=== PATIENT | female | born 1945 | race Caucasian/White ===

== ENCOUNTER 2017-03-26 08:00 | Outpatient (CLI) | payer MEDICARE, OTHER | END 2017-03-26 08:01 | disposition home or self-care (01) | DX: E03.9 Hypothyroidism, unspecified (principal) ==

== ENCOUNTER 2017-04-02 13:13 | Outpatient (CLI) | payer MEDICARE, OTHER | END 2017-04-02 13:14 | disposition home or self-care (01) | DX: M71.21 Synovial cyst of popliteal space [Baker], right knee (principal) ==

== ENCOUNTER 2017-04-08 10:23 | Outpatient (CLI) | payer MEDICARE, OTHER | END 2017-04-08 10:24 | disposition home or self-care (01) | DX: M17.0 Bilateral primary osteoarthritis of knee (principal) ==

== ENCOUNTER 2017-12-09 13:42 | Emergency (ER) | payer MEDICARE, OTHER ==
[2017-12-09 14:24] VITALS: BP 142/60
--- NOTE | 2017-12-09 14:26 | ED Physician Documentation ---
PD HPI CHEST PAIN - Stated complaint Stated Complaint: CHEST PRESSURE - History obtained from History obtained from: Family - History of Present Illness Timing - onset: Yesterday (Productive cough since yesterday with shortness of breath and chest pressure she thinks from the coughing with low-grade fevers at home and she feels like her skin is hypersensitive. No pedal edema or diffuse body aches. No recent travel, but she Did cancel a trip to [place] today because of this illness.) Review of Systems Constitutional: reports: Fever, Chills, Myalgias, Fatigue Ears: denies: Ear pain Nose: reports: Rhinorrhea / runny nose Throat: denies: Sore throat Cardiac: reports: Chest pain / pressure. 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 - Present Medications Home Medications: Ambulatory Orders Medication Instructions Recorded Confirmed Ezetimibe [Zetia] 10 mg PO DAILY 09/28/15 12/09/17 Hydroxychloroquine [Plaquenil] 200 mg PO DAILY 09/28/15 12/09/17 Levothyroxine Sodium [Synthroid] 125 mcg PO DAILY 09/28/15 12/09/17 guaiFENesin [Mucinex] 600 mg PO DAILY 09/29/15 12/09/17 Oseltamivir [Tamiflu] 75 mg PO BID #10 capsule 12/09/17 guaiFENesin/CODEINE [Robitussin AC] 5 - 10 ml PO Q6H PRN #120 ml 12/09/17 predniSONE [Deltasone] 20 mg PO [id number] #21 tab 12/09/17 - Allergies Allergies/Adverse Reactions: Allergies Allergy/AdvReac Type Severity Reaction Status Date / Time MSG Allergy Edema Uncoded 12/09/17 14:25 tannins Allergy Headache Uncoded 12/09/17 14:25 PD ED PE NORMAL - Vitals Vital signs reviewed: Yes - General General: Alert and oriented X 3, No acute distress - HEENT HEENT: PERRL, EOMI, Ears normal - Neck Neck: Supple, no meningeal sign, No bony TTP - Cardiac Cardiac: RRR, No murmur - Respiratory Respiratory: No respiratory distress, Clear bilaterally - Abdomen Abdomen: Normal bowel sounds, Soft, Non tender - Derm Derm: Normal color, Warm and dry - Extremities Extremities: No edema, No calf tenderness / cord - Neuro Neuro: Alert and oriented X 3, Normal speech Results - Vitals Vitals: Vital Signs - 24 hr 12/09/17 14:22 Temperature 38.6 C H Heart Rate 87 Respiratory 20 Rate Blood Pressure 142/60 H O2 Saturation 97 Oxygen O2 Source Room air - EKG (time done) 1355 Rate: Rate (enter#) (82) Rhythm: NSR Tyro: Normal Intervals: Normal HI QRS: Normal Ischemia: Normal ST segments Computer interpretation: Agree with computer - Labs Labs: Laboratory Tests 12/09/17 12/09/17 12/09/17 14:35 14:45 14:45 WBC 3.3 L RBC 4.29 Hgb 13.0 Hct 39.0 MCV 90.8 MCH 30.2 MCHC 33.3 RDW 13.1 Plt Count 192 MPV 7.5 L Neut # 1.7 Lymph # 0.7 L Garza # 0.7 Eos # 0.0 Baso # 0.1 Absolute Nucleated RBC 0.00 Nucleated RBC % 0.1 Sodium 138 Potassium 3.5 Chloride 102 Carbon Dioxide 25 Anion Gap 11.0 BUN 11 Creatinine 0.8 Estimated GFR (MDRD) 71 L Glucose 91 Calcium 8.7 Total Bilirubin 0.2 AST 23 ALT 18 Alkaline Phosphatase 49 Troponin I Total Protein 6.7 Albumin 3.9 Globulin 2.8 Albumin/Globulin Ratio 1.4 Lipase 24 Influenza A (Rapid) Negative Influenza B (Rapid) POSITIVE H Influenza Types A,B Ag + H 12/09/17 14:45 WBC RBC Hgb Hct MCV MCH MCHC RDW Plt Count MPV Neut # Lymph # Garza # Eos # Baso # Absolute Nucleated RBC Nucleated RBC % Sodium Potassium Chloride Carbon Dioxide Anion Gap BUN Creatinine Estimated GFR (MDRD) Glucose Calcium Total Bilirubin AST ALT Alkaline Phosphatase Troponin I < 0.04 Total Protein Albumin Globulin Albumin/Globulin Ratio Lipase Influenza A (Rapid) Influenza B (Rapid) Influenza Types A,B Ag - Rads (name of study) 2v chest Radiology: EMP read contemporaneously (normal) PD MEDICAL DECISION MAKING - ED course ED course: 72-year-old woman with underlying psoriatic arthritis and asthma presents with body aches and chest pain and shortness of breath consistent with influenza which she was positive for. Remainder of her testing was unremarkable. Departure - Departure Disposition: 01 Home, Self Care Clinical Impression: Influenza B Chest pain Qualifiers: Chest pain type: unspecified Qualified Code(s): R07.9 - Chest pain, unspecified Condition: Good Record reviewed to determine appropriate education?: Yes Instructions: ED Flu, Medication: Tamiflu (Oseltamivir) Prescriptions: guaiFENesin/CODEINE [Robitussin AC] 5 - 10 ml PO Q6H PRN #120 ml PRN Reason: Cough Oseltamivir [Tamiflu] 75 mg PO BID #10 capsule predniSONE [Deltasone] 20 mg PO [id number] #21 tab Comments: Ibuprofen/Motrin as needed for aches and pains and fever. Push fluids. Return if worse. Follow-up with your physician at the end of the week if not improving. Your blood pressure was elevated today on check into the emergency department. This does not mean that you have hypertension, it is a common phenomenon to come to the emergency department and have elevated blood pressure. I recommend that you see your primary care physician within the week to have it rechecked when you are feeling better. Forms: Activity restrictions
[2017-12-09] MEDS ORDERED: ACETAMINOPHEN 325 MG TABLET PO STA (14:31)
[2017-12-09 14:54] LABS: BASOPHILS # (AUTO) 0.1 10^3/uL (0.0-0.1); EOSINOPHILS % (AUTO) 0.5 %; LYMPHOCYTES # (AUTO) 0.7 10^3/uL (1.5-3.5); LYMPHOCYTES % (AUTO) 22.7 %; MEAN CORPUSCULAR HEMOGLOBIN 30.2 pg (27.0-31.0); MEAN CORPUSCULAR HGB CONC 33.3 g/dL (32.0-36.0); MEAN CORPUSCULAR VOLUME 90.8 fL (81.0-99.0); MEAN PLATELET VOLUME 7.5 fL (7.9-10.8); MONOCYTES # (AUTO) 0.7 10^3/uL (0.0-1.0); MONOCYTES % (AUTO) 22.5 %; NEUTROPHILS # (AUTO) 1.7 10^3/uL (1.5-6.6); NEUTROPHILS % (AUTO) 52.3 %; PLT - PLATELET COUNT 192 10^3/uL (130-450); RED BLOOD COUNT 4.29 10^6/uL (4.20-5.40); RED CELL DISTRIBUTION WIDTH 13.1 % (12.0-15.0); WHITE BLOOD COUNT 3.3 x10^3/uL (4.8-10.8)
[2017-12-09 15:08] LABS: ALBUMIN 3.9 g/dL (3.2-5.5); ALBUMIN/GLOBULIN RATIO 1.4 (1.0-2.2); BILIRUBIN,TOTAL 0.2 mg/dL (0.2-1.0); CALCIUM 8.7 mg/dL (8.5-10.3); CREATININE 0.8 mg/dL (0.4-1.0); TOTAL PROTEIN 6.7 g/dL (6.7-8.2)
--- NOTE | 2017-12-09 15:30 | XRAY Preliminary Report ---
Exam: XR CHEST 2 VIEW X-RAY IMPRESSION: Normal 2-view chest radiography. [facility] SITE ID: [id number]
--- NOTE | 2017-12-09 15:57 | XRAY Report ---
EXAM: CHEST RADIOGRAPHY EXAM DATE: 12/09/2017 03:13 PM. CLINICAL HISTORY: Cough. COMPARISON: None. TECHNIQUE: 2 views. FINDINGS: Lungs/Pleura: No focal opacities evident. No pleural effusion. No pneumothorax. Normal volumes. Mediastinum: Heart and mediastinal contours are unremarkable. Other: Prior lumbar spine surgery. IMPRESSION: Normal 2-view chest radiography. [facility] Referring Provider Line: [phone] SITE ID: [id number]
== END 2017-12-09 15:51 | disposition home or self-care (01) ==
LOC: ED 13:42
DX: J10.1 Influenza due to other identified influenza virus with other respiratory manifestations (principal); R07.9 Chest pain, unspecified; E03.9 Hypothyroidism, unspecified; E78.00 Pure hypercholesterolemia, unspecified; R03.0 Elevated blood-pressure reading, without diagnosis of hypertension
CPT/HCPCS: 36415; 71046; 80053; 83690; 84484; 85025; 87275; 87276; 93005; 99283; A9270

== ENCOUNTER 2018-05-23 07:45 | Outpatient (CLI) | payer MEDICARE, OTHER ==
[2018-05-23 12:35] LABS: BASOPHILS % (AUTO) 0.8 %; EOSINOPHILS # (AUTO) 0.2 10^3/uL (0.0-0.7); EOSINOPHILS % (AUTO) 4.7 %; LYMPHOCYTES # (AUTO) 1.8 10^3/uL (1.5-3.5); LYMPHOCYTES % (AUTO) 40.8 %; MEAN CORPUSCULAR HEMOGLOBIN 30.4 pg (27.0-31.0); MEAN CORPUSCULAR HGB CONC 32.6 g/dL (32.0-36.0); MEAN CORPUSCULAR VOLUME 93.3 fL (81.0-99.0); MEAN PLATELET VOLUME 9.2 fL (7.9-10.8); MONOCYTES # (AUTO) 0.7 10^3/uL (0.0-1.0); MONOCYTES % (AUTO) 15.5 %; NEUTROPHILS # (AUTO) 1.6 10^3/uL (1.5-6.6); NEUTROPHILS % (AUTO) 38.2 %; PLT - PLATELET COUNT 216 10^3/uL (130-450); RED CELL DISTRIBUTION WIDTH 13.9 % (12.0-15.0); WHITE BLOOD COUNT 4.3 x10^3/uL (4.8-10.8)
[2018-05-23 12:53] LABS: ALBUMIN 3.6 g/dL (3.2-5.5); ALBUMIN/GLOBULIN RATIO 1.2 (1.0-2.2); ALKALINE PHOSPHATASE 53 IU/L (42-121); ALT ALANINE AMINOTRANSFERASE 16 IU/L (10-60); AST ASPARTATE AMINOTRANSFERASE 19 IU/L (10-42); BILIRUBIN,TOTAL 0.6 mg/dL (0.2-1.0); BUN - BLOOD UREA NITROGEN 15 mg/dL (6-20); CALCIUM 8.8 mg/dL (8.5-10.3); CARBON DIOXIDE - CO2 29 mmol/L (21-32); CHLORIDE 106 mmol/L (101-111); CHOL/HDL RATIO 3.2 (<4.4); CHOLESTEROL 199 mg/dL; CREATININE 0.9 mg/dL (0.4-1.0); GFR - MDRD 62 (>89); GLUCOSE 102 mg/dL (70-100); HDL CHOLESTEROL 63 mg/dL; LDL CHOLESTEROL,CALCULATED 111 mg/dL; LDL/HDL RATIO 1.8 (<4.4); SODIUM 141 mmol/L (135-145); TOTAL PROTEIN 6.6 g/dL (6.7-8.2); VLDL CHOLESTEROL 25 mg/dL
== END 2018-05-23 07:46 | disposition home or self-care (01) ==
LOC: LAB.F 07:45
PROVIDERS: ATTEND Family Medicine
DX: E78.5 Hyperlipidemia, unspecified (principal); E03.9 Hypothyroidism, unspecified
CPT/HCPCS: 36415; 80053; 80061; 83721; 84443; 85025

== ENCOUNTER 2019-02-24 08:05 | Outpatient (CLI) | payer MEDICARE, OTHER ==
[2019-02-24 10:22] LABS: BASOPHILS # (AUTO) 0.1 10^3/uL (0.0-0.1); BASOPHILS % (AUTO) 1.6 %; EOSINOPHILS # (AUTO) 0.3 10^3/uL (0.0-0.7); EOSINOPHILS % (AUTO) 7.5 %; HGB - HEMOGLOBIN 14.3 g/dL (12.0-16.0); LYMPHOCYTES # (AUTO) 1.8 10^3/uL (1.5-3.5); LYMPHOCYTES % (AUTO) 39.3 %; MEAN CORPUSCULAR HEMOGLOBIN 30.6 pg (27.0-31.0); MEAN CORPUSCULAR HGB CONC 33.4 g/dL (32.0-36.0); MEAN CORPUSCULAR VOLUME 91.5 fL (81.0-99.0); MEAN PLATELET VOLUME 8.6 fL (7.9-10.8); MONOCYTES # (AUTO) 0.5 10^3/uL (0.0-1.0); MONOCYTES % (AUTO) 11.3 %; NEUTROPHILS # (AUTO) 1.9 10^3/uL (1.5-6.6); NEUTROPHILS % (AUTO) 40.3 %; PLT - PLATELET COUNT 247 10^3/uL (130-450); RED BLOOD COUNT 4.69 10^6/uL (4.20-5.40); RED CELL DISTRIBUTION WIDTH 13.8 % (12.0-15.0); WHITE BLOOD COUNT 4.6 x10^3/uL (4.8-10.8)
[2019-02-24 10:40] LABS: ALBUMIN/GLOBULIN RATIO 1.4 (1.0-2.2); ALKALINE PHOSPHATASE 70 IU/L (42-121); ALT ALANINE AMINOTRANSFERASE 17 IU/L (10-60); AST ASPARTATE AMINOTRANSFERASE 20 IU/L (10-42); BILIRUBIN,TOTAL 0.7 mg/dL (0.2-1.0); BUN - BLOOD UREA NITROGEN 17 mg/dL (6-20); CALCIUM 9.1 mg/dL (8.5-10.3); CARBON DIOXIDE - CO2 29 mmol/L (21-32); CHLORIDE 100 mmol/L (101-111); CHOL/HDL RATIO 3.3 (<4.4); CHOLESTEROL 212 mg/dL; CREATININE 0.9 mg/dL (0.4-1.0); GFR - MDRD 62 (>89); GLUCOSE 92 mg/dL (70-100); HDL CHOLESTEROL 64 mg/dL; LDL CHOLESTEROL,CALCULATED 118 mg/dL; LDL/HDL RATIO 1.8 (<4.4); SODIUM 138 mmol/L (135-145); TOTAL PROTEIN 6.9 g/dL (6.7-8.2); VLDL CHOLESTEROL 30 mg/dL
[2019-02-24 10:50] LABS: THYROID STIMULATING HORMONE 1.74 uIU/mL (0.34-5.60)
[2019-02-24 11:01] LABS: FOLATE 11.83 ng/mL (5.90 - >24.8)
== END 2019-02-24 08:06 | disposition home or self-care (01) ==
LOC: LAB.F 08:05
PROVIDERS: ATTEND Physician Assistant Medical
DX: E78.5 Hyperlipidemia, unspecified (principal); R41.3 Other amnesia; E03.9 Hypothyroidism, unspecified; Z51.81 Encounter for therapeutic drug level monitoring; Z79.899 Other long term (current) drug therapy
CPT/HCPCS: 36415; 80053; 80061; 82607; 82746; 83721; 84443; 85025

== ENCOUNTER 2019-05-21 15:30 | Outpatient (CLI) | payer MEDICARE, OTHER ==
--- NOTE | 2019-05-22 09:08 | DEXA Report ---
Reason: NORMAL MENOPAUSE Procedure Date: 05/21/2019 Accession Number: [id number] / [id number] Procedure: DEX - Dexa Spine and/or Hip CPT Code: FULL RESULT: EXAM: Dexa Spine and/or Hip DATE: 05/21/2019 4:02 PM CLINICAL HISTORY: NORMAL MENOPAUSE TECHNIQUE: Dual energy x-ray absorptiometry (DXA) was performed on a [employer] System. Regions measured are the AP Spine, femoral neck, and if needed forearm. COMPARISON: None. In accordance with the International Society for Clinical Densitometry (ISCD) guidelines, data from previous exams may be reanalyzed using current recommendations and techniques. This is done to allow a more accurate basis for comparison with the current study. FINDINGS: The data for the lumbar spine is as follows: BMD (g/cm/cm) T-SCORE Z-SCORE REGION L1 0.833 -2.5 -1.2 L2 0.968 -1.9 -0.7 L3 1.085 -1.0 0.3 L4 TOTAL 0.972 -1.7 -0.4 NOTE: All evaluable vertebrae are used for classification The data for the hip is as follows: BMD (g/cm/cm) T-SCORE Z-SCORE REGION Neck 0.766 -2.0 -0.4 TOTAL 0.862 -1.2 0.1 NOTE: The femoral neck or total proximal femur, whichever is lowest, is used for classification. IMPRESSION: THE WHO CLASSIFICATION BASED ON THE INTERNATIONAL REFERENCE STANDARD IS OSTEOPENIA. THE FRACTURE RISK IS INCREASED. RECOMMENDATION: Patients with diagnosis of osteoporosis or osteopenia should have regular bone mineral density assessment. For those eligible for Medicare, routine testing is allowed once every 2 years. Testing frequency can be increased for patients who have rapidly progressing disease or for those who are receiving medical therapy to restore bone mass. COMMENT: World Health Organization (WHO) definitions for osteoporosis and osteopenia: NORMAL BMD: T-score at -1.0 or higher, fracture risk is low OSTEOPENIA BMD: T-score between -1.0 and -2.5, fracture risk is increased. OSTEOPOROSIS BMD: T-score at -2.5 or lower, fracture risk is high. National Osteoporosis Foundation recommends: 1. Obtain adequate dietary calcium (at least 1200 mg per day) and vitamin D (400-800 international units per day). 2. Participate, as appropriate, in regular weightbearing and muscle-strengthening exercise. 3. Avoid tobacco use and reduce alcohol and caffeine intake. 4. For more detailed information see the website at www.NOF.org.
== END 2019-05-21 15:31 | disposition home or self-care (01) ==
LOC: DI 15:30
PROVIDERS: ATTEND Internal Medicine
DX: M85.89 Other specified disorders of bone density and structure, multiple sites (principal); Z78.0 Asymptomatic menopausal state
CPT/HCPCS: 77080

== ENCOUNTER 2019-05-21 15:32 | Outpatient (CLI) | payer MEDICARE, OTHER ==
--- NOTE | 2019-05-22 10:23 | Mammography Report ---
Reason: OTHER SCREENING MAMMOGRAM Procedure Date: 05/21/2019 Accession Number: [id number] / [id number] Procedure: CAREY - Screening Mammo w/Ludwig CPT Code: FULL RESULT: EXAM: Screening Mammo w/Ludwig DATE: 05/21/2019 4:15 PM CLINICAL HISTORY: Screening encounter. History of early menses and late childbearing. TECHNIQUE: (B) - Bilateral CC and MLO views were obtained. COMPARISON: 01/27/2015 through 07/18/2010. PARENCHYMAL PATTERN: (A) - The breast(s) demonstrate(s) scattered fibroglandular densities. FINDINGS: There are no suspicious masses, calcifications, or areas of distortion. IMPRESSION: Negative examination. BI-RADS category 1. RECOMMENDATION: (ANNUAL) - Recommend routine annual screening mammography. BI-RADS CATEGORY: (1) - Negative. STANDARD QUALIFYING STATEMENTS: 1. This examination was not reviewed with the aid of Computer-Aided Detection (CAD). 2. A negative or benign imaging report should not preclude biopsy if clinically suspicious findings are present. 3. Dense breasts may obscure an underlying neoplasm. 4. This examination was reviewed with the aid of 3D breast imaging (tomosynthesis).
== END 2019-05-21 15:33 | disposition home or self-care (01) ==
LOC: DI 15:32
PROVIDERS: ATTEND Internal Medicine
DX: Z12.31 Encounter for screening mammogram for malignant neoplasm of breast (principal)
CPT/HCPCS: 77063; 77067

== ENCOUNTER 2020-05-12 08:00 | Outpatient (CLI) | payer MEDICARE, OTHER ==
[2020-05-12 15:30] LABS: CHOL/HDL RATIO 3.7 (<4.4); CHOLESTEROL 223 mg/dL; GLUCOSE,FASTING 92 mg/dL (70-100); HDL CHOLESTEROL 60 mg/dL; LDL CHOLESTEROL,CALCULATED 144 mg/dL; LDL/HDL RATIO 2.4 (<4.4); VLDL CHOLESTEROL 19 mg/dL
== END 2020-05-12 08:01 | disposition home or self-care (01) ==
LOC: LAB.S 08:00
PROVIDERS: ATTEND Internal Medicine
DX: J45.909 Unspecified asthma, uncomplicated (principal); F32.9 Major depressive disorder, single episode, unspecified; R03.0 Elevated blood-pressure reading, without diagnosis of hypertension; H91.90 Unspecified hearing loss, unspecified ear; E78.5 Hyperlipidemia, unspecified; E03.9 Hypothyroidism, unspecified; M19.90 Unspecified osteoarthritis, unspecified site; L40.9 Psoriasis, unspecified; L40.50 Arthropathic psoriasis, unspecified; L72.3 Sebaceous cyst; H93.19 Tinnitus, unspecified ear; E66.9 Obesity, unspecified
CPT/HCPCS: 36415; 80061; 82947; 83721; 84443

== ENCOUNTER 2020-06-06 23:02 | Emergency (ER) | payer MEDICARE, OTHER ==
--- NOTE | 2020-06-06 23:08 | ED Physician Documentation ---
History of Present Illness - Stated complaint Stated Complaint: EAR SORES - History obtained from History obtained from: Patient (Patient is a 75-year-old female who presents with a chief complaint of vesicles around her left ear with a history of shingles denies any eye pain or any rash near the eye.Denies any history of being immunocompromised.) Review of Systems Constitutional: reports: Reviewed and negative Eyes: reports: Reviewed and negative Ears: reports: Reviewed and negative Nose: reports: Reviewed and negative Throat: reports: Reviewed and negative Cardiac: reports: Reviewed and negative Respiratory: reports: Reviewed and negative GI: reports: Reviewed and negative : reports: Reviewed and negative Skin: reports: Rash, Lesions Musculoskeletal: reports: Reviewed and negative Neurologic: reports: Reviewed and negative Psychiatric: reports: Reviewed and negative Endocrine: reports: Reviewed and negative Immunocompromised: reports: Reviewed and negative PD PAST MEDICAL HISTORY - Past Medical History Cardiovascular: High cholesterol Respiratory: Asthma Endocrine/Autoimmune: HyPOthyroidism : None HEENT: None Psych: None Musculoskeletal: Other Derm: Psoriasis - Past Surgical History Past Surgical History: Yes 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 - Present Medications Home Medications: Ambulatory Orders Medication Instructions Recorded Confirmed Ezetimibe [Zetia] 10 mg PO DAILY 09/28/15 12/09/17 Hydroxychloroquine [Plaquenil] 200 mg PO DAILY 09/28/15 12/09/17 Levothyroxine Sodium [Synthroid] 125 mcg PO DAILY 09/28/15 12/09/17 guaiFENesin [Mucinex] 600 mg PO DAILY 09/29/15 12/09/17 Oseltamivir [Tamiflu] 75 mg PO BID #10 capsule 12/09/17 guaiFENesin/CODEINE [Robitussin AC] 5 - 10 ml PO Q6H PRN #120 ml 12/09/17 predniSONE [Deltasone] 20 mg PO [id number] #21 tab 12/09/17 Valacyclovir HCl [Valtrex] 1,000 mg PO TID 7 Days #21 tablet 06/06/20 - Allergies Allergies/Adverse Reactions: Allergies Allergy/AdvReac Type Severity Reaction Status Date / Time MSG Allergy Edema Uncoded 06/06/20 23:10 tannins Allergy Headache Uncoded 06/06/20 23:10 - Social History Does the pt smoke?: No Smoking Status: Never smoker Does the pt drink ETOH?: No Does the pt have substance abuse?: No - Immunizations Immunizations are current?: Yes - POLST Patient has POLST: No PD ED PE NORMAL - Vitals Vital signs reviewed: Yes - General General: Alert and oriented X 3, No acute distress - HEENT HEENT: PERRL, Other (On the left ear there are multiple small vesicles that are erythematous a few with bullae with clear vesicular fluid present no lesions noted in the external auditory canal no lesions noted on the face.) - Neck Neck: Supple, no meningeal sign - Cardiac Cardiac: RRR, No murmur - Respiratory Respiratory: Clear bilaterally - Abdomen Abdomen: Normal bowel sounds, Soft, Non tender, Non distended - Derm Derm: Warm and dry - Extremities Extremities: No deformity - Neuro Neuro: Alert and oriented X 3, 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 Encourage close follow-up tomorrow with her primary care provider as well as would recommend an evaluation by either an cans vacuum tester or plug paster tomorrow as well.), d/w patient, d/w family Departure - Departure Disposition: 01 Home, Self Care Clinical Impression: Shingles Qualifiers: Herpes zoster complications: without complications Qualified Code(s): B02.9 - Zoster without complications Condition: Stable Instructions: ED Shingles Follow-Up: Yuan Byrne MD [Primary Care Provider] - Tomorrow Prescriptions: Valacyclovir HCl [Valtrex] 1,000 mg PO TID 7 Days #21 tablet Comments: Take Valtrex as directed. Follow-up with your primary care provider tomorrow.
[2020-06-06 23:13] VITALS: BP 160/60
[2020-06-06] MEDS ORDERED: valACYclovir 500 MG TABLET PO SCH (23:45)
== END 2020-06-06 23:53 | disposition home or self-care (01) ==
LOC: ED 23:02
DX: B02.9 Zoster without complications (principal)
CPT/HCPCS: 99282; 99283; A9270

== ENCOUNTER 2021-02-18 13:52 | Outpatient (CLI) | payer MEDICARE, OTHER ==
--- NOTE | 2021-02-18 16:09 | XRAY Report ---
PROCEDURE: Cervical Spine 2 View INDICATIONS: NECK PX TECHNIQUE: 3 view(s) of the cervical spine were acquired. COMPARISON: None. FINDINGS: Bones: No fractures or dislocations to the C7-T1 level. The lateral masses of C1 appear intact on t he odontoid view. No suspicious bony lesions. There is mild straightening of normal cervical curvat ure. There is trace retrolisthesis of C3 on C4, C4 on C5. Moderate to severe disc space narrowing is present C4-5, C5-6 and C6-7. Minimal nonbridging anterior ossified are present. Multilevel uncoverteb ral arthropathy is present. Soft tissues: No prevertebral soft tissue swelling. IMPRESSION: Multilevel degenerative changes most notable from C4-5 through C6-7. Reviewed by: Stephie Denton MD on 02/18/2021 4:07 PM PDT Approved by: Stephie Denton MD on 02/18/2021 4:07 PM PDT Station ID: [id number]
== END 2021-02-18 13:53 | disposition home or self-care (01) ==
LOC: DI.S 13:52
PROVIDERS: ATTEND Internal Medicine Rheumatology
DX: M43.12 Spondylolisthesis, cervical region (principal); M50.321 Other cervical disc degeneration at C4-C5 level

== ENCOUNTER 2021-02-18 13:58 | Outpatient (CLI) | payer MEDICARE, OTHER ==
--- NOTE | 2021-02-20 16:17 | XRAY Report ---
PROCEDURE: Thoracic Spine 2 View INDICATIONS: UPPER BACK PX TECHNIQUE: 3 views of the thoracic spine were acquired. COMPARISON: None. FINDINGS: Bones: No fractures or dislocations. No suspicious bony lesions. 12 pairs of ribs are noted, and a ppear intact where visualized. Scattered areas of multilevel disc space narrowing are present. Minim al anterior osteophytes are present. Soft tissues: No paravertebral stripe thickening. IMPRESSION: Multilevel degenerative disc space narrowing. Reviewed by: Stephie Denton MD on 02/18/2021 4:07 PM PDT Approved by: Stephie Denton MD on 02/18/2021 4:07 PM PDT Station ID: [id number]
== END 2021-02-18 13:59 | disposition home or self-care (01) ==
LOC: DI.S 13:58
PROVIDERS: ATTEND Internal Medicine Rheumatology
DX: M51.34 Other intervertebral disc degeneration, thoracic region (principal)

== ENCOUNTER 2021-02-18 14:01 | Outpatient (CLI) | payer MEDICARE, OTHER ==
--- NOTE | 2021-02-18 16:07 | XRAY Report ---
PROCEDURE: Hip w/Pelvis 2-3V LT INDICATIONS: LT HIP PX TECHNIQUE: AP pelvis with lateral view(s) of the left hip(s). COMPARISON: None. FINDINGS: Bones: No fractures or dislocations. Pelvic ring appears intact. No suspicious bony lesions. L4-5 fusion is present. There is moderate degenerative bilateral hip joint space narrowing with periartic ular osteophytes. No erosions. Soft tissues: The visualized bowel gas pattern is normal. No suspicious soft tissue calcifications. 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 Reviewed by: Stephie Denton MD on 02/18/2021 4:06 PM PDT Approved by: Stephie Denton MD on 02/18/2021 4:06 PM PDT Station ID: [id number]
== END 2021-02-18 14:02 | disposition home or self-care (01) ==
LOC: DI.S 14:01
PROVIDERS: ATTEND Internal Medicine Rheumatology
DX: M16.0 Bilateral primary osteoarthritis of hip (principal); M43.12 Spondylolisthesis, cervical region; M50.321 Other cervical disc degeneration at C4-C5 level; M51.34 Other intervertebral disc degeneration, thoracic region

== ENCOUNTER 2021-05-06 09:08 | Outpatient (CLI) | payer MEDICARE, OTHER ==
[2021-05-06 15:45] LABS: CHOL/HDL RATIO 3.5 (<4.4); CHOLESTEROL 242 mg/dL; HDL CHOLESTEROL 70 mg/dL; LDL CHOLESTEROL,CALCULATED 149 mg/dL; LDL/HDL RATIO 2.1 (<4.4); TRIGLYCERIDES 117 mg/dL; VLDL CHOLESTEROL 23 mg/dL
[2021-05-06 15:53] LABS: THYROID STIMULATING HORMONE 0.21 uIU/mL (0.34-5.60)
[2021-05-06 16:37] LABS: FREE T4 (FREE THYROXINE) 1.14 ng/dL (0.58-1.64)
[2021-05-06 20:13] LABS: ESTIMATED AVERAGE GLUCOSE 126 mg/dL (70-100)
[2021-05-08 14:37] LABS: HEPATITIS C ANTIBODY NON-REACTIVE (NON-REACTIVE)
== END 2021-05-06 09:09 | disposition home or self-care (01) ==
LOC: LAB.S 09:08
PROVIDERS: ATTEND Internal Medicine
DX: E78.5 Hyperlipidemia, unspecified (principal); E03.9 Hypothyroidism, unspecified; Z13.1 Encounter for screening for diabetes mellitus; Z11.59 Encounter for screening for other viral diseases
CPT/HCPCS: 36415; 80061; 83036; 83721; 84439; 84443; 86803

== ENCOUNTER 2021-10-28 10:30 | Outpatient (CLI) | payer MEDICARE, OTHER ==
[2021-10-28 15:33] LABS: BASOPHILS % (AUTO) 0.6 %; EOSINOPHILS # (AUTO) 0.1 10^3/uL (0.0-0.7); EOSINOPHILS % (AUTO) 1.7 %; HCT - HEMATOCRIT 44.3 % (37.0-47.0); HGB - HEMOGLOBIN 14.2 g/dL (12.0-16.0); LYMPHOCYTES # (AUTO) 2.3 10^3/uL (1.5-3.5); LYMPHOCYTES % (AUTO) 35.3 %; MEAN CORPUSCULAR HEMOGLOBIN 30.1 pg (27.0-31.0); MEAN CORPUSCULAR HGB CONC 32.1 g/dL (32.0-36.0); MEAN CORPUSCULAR VOLUME 94.1 fL (81.0-99.0); MEAN PLATELET VOLUME 10.4 fL (7.9-10.8); MONOCYTES # (AUTO) 0.8 10^3/uL (0.0-1.0); MONOCYTES % (AUTO) 11.7 %; NEUTROPHILS # (AUTO) 3.3 10^3/uL (1.5-6.6); NEUTROPHILS % (AUTO) 50.5 %; PLT - PLATELET COUNT 266 10^3/uL (130-450); RED BLOOD COUNT 4.71 10^6/uL (4.20-5.40); RED CELL DISTRIBUTION WIDTH 12.9 % (12.0-15.0); WHITE BLOOD COUNT 6.6 x10^3/uL (4.8-10.8)
[2021-10-28 16:04] LABS: THYROID STIMULATING HORMONE 2.59 uIU/mL (0.34-5.60)
[2021-10-28 16:06] LABS: FREE T3 3.05 pg/mL (2.5-3.9); FREE T4 (FREE THYROXINE) 0.72 ng/dL (0.58-1.64)
== END 2021-10-28 10:31 | disposition home or self-care (01) ==
LOC: LAB.S 10:30
PROVIDERS: ATTEND Internal Medicine
DX: R50.9 Fever, unspecified (principal); E03.9 Hypothyroidism, unspecified
CPT/HCPCS: 36415; 84439; 84443; 84481; 85025

== ENCOUNTER 2022-01-10 12:06 | Outpatient (CLI) | payer MEDICARE, OTHER ==
[2022-01-10 16:14] LABS: BASOPHILS % (AUTO) 0.5 %; EOSINOPHILS # (AUTO) 0.1 10^3/uL (0.0-0.7); EOSINOPHILS % (AUTO) 1.5 %; HCT - HEMATOCRIT 43.5 % (37.0-47.0); HGB - HEMOGLOBIN 14.2 g/dL (12.0-16.0); LYMPHOCYTES % (AUTO) 34.5 %; MEAN CORPUSCULAR HEMOGLOBIN 30.5 pg (27.0-31.0); MEAN CORPUSCULAR HGB CONC 32.6 g/dL (32.0-36.0); MEAN CORPUSCULAR VOLUME 93.5 fL (81.0-99.0); MEAN PLATELET VOLUME 10.8 fL (7.9-10.8); MONOCYTES # (AUTO) 0.7 10^3/uL (0.0-1.0); MONOCYTES % (AUTO) 11.8 %; NEUTROPHILS % (AUTO) 51.4 %; PLT - PLATELET COUNT 243 10^3/uL (130-450); RED BLOOD COUNT 4.65 10^6/uL (4.20-5.40); RED CELL DISTRIBUTION WIDTH 13.1 % (12.0-15.0); WHITE BLOOD COUNT 5.9 x10^3/uL (4.8-10.8)
== END 2022-01-10 12:07 | disposition home or self-care (01) ==
LOC: LAB.S 12:06
PROVIDERS: ATTEND Internal Medicine
DX: G50.1 Atypical facial pain (principal); K04.7 Periapical abscess without sinus
CPT/HCPCS: 36415; 85025; 85651; 86140

== ENCOUNTER 2022-02-07 07:47 | Outpatient (CLI) | payer MEDICARE, OTHER ==
--- NOTE | 2022-02-08 10:41 | Mammography Report ---
BILATERAL DIGITAL SCREENING MAMMOGRAM 3D/2D: 02/07/2022 CLINICAL: Routine screening. Family history of breast cancer. Comparison is made to exams dated: 06/30/2020 mammogram, 05/21/2019 mammogram, and 01/27/2015 mammogram - [facility]. The tissue of both breasts is predominantly fatty. No significant masses, calcifications, or other findings are seen in either breast. There has been no significant interval change. IMPRESSION: NEGATIVE There is no mammographic evidence of malignancy. A 1 year screening mammogram is recommended. This exam was interpreted at Station ID: [id number]. NOTE: For mammograms, a report in lay terms will be sent to the patient. Approximately 15% of breast malignancies will not be visualized mammographically. In the management of a palpable breast mass, a negative mammogram must not discourage biopsy of a clinically suspicious lesion. Electronically Signed By: Vanessa wise/penrad:02/07/2022 11:42:50 ACR BI-RADS Category 1: Negative 3341F PARENCHYMAL PATTERN: (F) - The breast(s) demonstrate(s) diffuse fatty replacement. BI-RADS CATEGORY: (1) - 1 RECOMMENDATION: (ANNUAL) - Recommend routine annual screening mammography. [id number] 1 year screening LATERALITY: (B)
== END 2022-02-07 07:48 | disposition home or self-care (01) ==
LOC: DI.S 07:47
PROVIDERS: ATTEND Internal Medicine
DX: Z12.31 Encounter for screening mammogram for malignant neoplasm of breast (principal); Z80.3 Family history of malignant neoplasm of breast

== ENCOUNTER 2022-08-13 10:57 | Outpatient (CLI) | payer MEDICARE, OTHER ==
[2022-08-13 15:28] LABS: CHOL/HDL RATIO 3.4 (<4.4); CHOLESTEROL 228 mg/dL; HDL CHOLESTEROL 67 mg/dL; LDL CHOLESTEROL,CALCULATED 134 mg/dL; TRIGLYCERIDES 137 mg/dL; VLDL CHOLESTEROL 27 mg/dL
[2022-08-13 15:39] LABS: THYROID STIMULATING HORMONE 0.11 uIU/mL (0.34-5.60)
[2022-08-13 17:32] LABS: FREE T4 (FREE THYROXINE) 1.22 ng/dL (0.58-1.64)
[2022-08-13 20:47] LABS: ESTIMATED AVERAGE GLUCOSE 114 mg/dL (70-100); HEMOGLOBIN A1c% 5.6 % (4.27-6.07)
== END 2022-08-13 10:58 | disposition home or self-care (01) ==
LOC: LAB.S 10:57
PROVIDERS: ATTEND Internal Medicine
DX: E03.9 Hypothyroidism, unspecified (principal); E78.5 Hyperlipidemia, unspecified; Z13.1 Encounter for screening for diabetes mellitus
CPT/HCPCS: 36415; 80061; 83036; 83721; 84439; 84443

== ENCOUNTER 2022-08-22 11:38 | Outpatient (CLI) | payer MEDICARE, OTHER | END 2022-08-22 11:39 | disposition home or self-care (01) | LOC: RT 11:38 | PROVIDERS: ATTEND Internal Medicine | DX: R00.0 Tachycardia, unspecified (principal) | CPT/HCPCS: 93005 ==

== ENCOUNTER 2023-03-14 08:12 | Outpatient (CLI) | payer MEDICARE, OTHER ==
--- NOTE | 2023-03-15 10:33 | Mammography Report ---
BILATERAL DIGITAL SCREENING MAMMOGRAM 3D/2D: 03/14/2023 CLINICAL: Routine screening. Family history of breast cancer. Comparison is made to exams dated: 02/07/2022 mammogram, 06/30/2020 mammogram, and 05/21/2019 mammogram - . Both breasts are almost entirely fatty (category a/<25% glandular tissue). No significant masses, calcifications, or other findings are seen in either breast. There has been no significant interval change. IMPRESSION: NEGATIVE There is no mammographic evidence of malignancy. A 1 year screening mammogram is recommended. Based on the Tyrer Cuzick model (a risk assessment model) the patients lifetime risk is 4.0% and her 10 year risk is 0.0%. According to the ACR, ACS, and NCCN guidelines, an annual breast MRI exam sofya g with mammogram is recommended if the patients lifetime risk is 20% or greater. This exam was interpreted at Station ID: [id number]. NOTE: For mammograms, a report in lay terms will be sent to the patient. Approximately 15% of breast malignancies will not be visualized mammographically. In the management of a palpable breast mass, a negative mammogram must not discourage biopsy of a clinically suspicious lesion. Electronically Signed By: Vanessa wies/katlyn:03/14/2023 13:22:07 letter sent: No_Letter ACR BI-RADS Category 1: Negative 3341F PARENCHYMAL PATTERN: (F) - The breast(s) demonstrate(s) diffuse fatty replacement. BI-RADS CATEGORY: (1) - 1 Mammogram [id number] 1 year screening LATERALITY: (B)
== END 2023-03-14 08:13 | disposition home or self-care (01) ==
LOC: DI.S 08:12
PROVIDERS: ATTEND Internal Medicine
DX: Z12.31 Encounter for screening mammogram for malignant neoplasm of breast (principal); Z80.3 Family history of malignant neoplasm of breast

== ENCOUNTER 2023-09-13 08:00 | Outpatient (CLI) | payer MEDICARE, OTHER | END 2023-09-13 23:59 | disposition home or self-care (01) | LOC: LAB 08:00 | PROVIDERS: ATTEND Physician Assistant | DX: R30.0 Dysuria (principal) | CPT/HCPCS: 87086; 87181 ==

== ENCOUNTER 2023-09-24 07:58 | Outpatient (CLI) | payer MEDICARE, OTHER ==
[2023-09-24 14:46] LABS: BILIRUBIN,URINE NEGATIVE (NEGATIVE); GLUCOSE, URINE (UA) NEGATIVE (NEGATIVE); KETONES,URINE (UA) NEGATIVE (NEGATIVE); LEUKOCYTE ESTERASE, URINE SMALL (NEGATIVE); NITRITE,URINE NEGATIVE (NEGATIVE); OCCULT BLOOD,URINE NEGATIVE (NEGATIVE); PROTEIN,URINE NEGATIVE (NEGATIVE); UROBILINOGEN,URINE 0.2 (NORMAL) E.U./dL (NORMAL)
[2023-09-24 15:12] LABS: CLARITY,URINE HAZY (CLEAR)
[2023-09-24 15:25] LABS: BACTERIA,URINE Rare /HPF (None Seen); RBC,URINE 0-5 /HPF (0-5); SQUAMOUS EPITHELIAL CELL,UR RARE Squamous (<= Few); WBC,URINE 0-3 /HPF (0-5)
== END 2023-09-24 07:59 | disposition home or self-care (01) ==
LOC: LAB.S 07:58
PROVIDERS: ATTEND Internal Medicine
DX: N39.0 Urinary tract infection, site not specified (principal)
CPT/HCPCS: 81001; 87077; 87086; 87181

== ENCOUNTER 2023-10-02 11:38 | Outpatient (CLI) | payer MEDICARE, OTHER ==
[2023-10-02 14:50] LABS: BILIRUBIN,URINE NEGATIVE (NEGATIVE); GLUCOSE, URINE (UA) NEGATIVE (NEGATIVE); KETONES,URINE (UA) NEGATIVE (NEGATIVE); LEUKOCYTE ESTERASE, URINE NEGATIVE (NEGATIVE); NITRITE,URINE NEGATIVE (NEGATIVE); OCCULT BLOOD,URINE NEGATIVE (NEGATIVE); PROTEIN,URINE NEGATIVE (NEGATIVE); UROBILINOGEN,URINE 0.2 (NORMAL) E.U./dL (NORMAL)
[2023-10-02 14:53] LABS: CLARITY,URINE CLEAR (CLEAR)
== END 2023-10-02 11:39 | disposition home or self-care (01) ==
LOC: LAB.S 11:38
PROVIDERS: ATTEND Internal Medicine
DX: N39.0 Urinary tract infection, site not specified (principal)
CPT/HCPCS: 81001; 81003; 87086

== ENCOUNTER 2024-01-15 08:00 | Outpatient (CLI) | payer MEDICARE, OTHER ==
--- NOTE | 2024-01-15 13:23 | XRAY Report ---
PROCEDURE: Calcaneus 2+V LT INDICATIONS: ACHILLES TENDINITIS, LEFT TECHNIQUE: Two views of the calcaneus were acquired. COMPARISON: Ankle x-ray 01/13/2015 FINDINGS: Bones: No fractures or dislocations. No suspicious bony lesions. Soft tissues: No suspicious calcifications. Achilles tendon appears normal. IMPRESSION: No visualized acute fracture or dislocation. However, occult injury cannot be excluded. Recommend jie rt interval imaging follow-up in 7-10 days as clinically indicated for additional evaluation. Soft tissues structures are unremarkable. Reviewed by: Stephie Denton MD on 01/15/2024 1:22 PM [facility] Approved by: Stephie Denton MD on 01/15/2024 1:22 PM [facility] Station ID: [id number]
== END 2024-01-15 23:59 | disposition home or self-care (01) ==
LOC: DI.S 08:00
PROVIDERS: ATTEND Emergency Medicine
DX: M76.62 Achilles tendinitis, left leg (principal)

== ENCOUNTER 2024-03-26 10:02 | Outpatient (CLI) | payer MEDICARE, OTHER ==
[2024-03-26 15:46] LABS: CALCIUM 10.1 mg/dL (8.5-10.3); CREATININE 0.8 mg/dL (0.6-1.3); POTASSIUM 4.3 mmol/L (3.5-4.5)
== END 2024-03-26 10:03 | disposition home or self-care (01) ==
LOC: LAB.S 10:02
PROVIDERS: ATTEND Internal Medicine
DX: I10 Essential (primary) hypertension (principal)
CPT/HCPCS: 36415; 80048

== ENCOUNTER 2024-05-19 14:07 | Outpatient (CLI) | payer MEDICARE, OTHER ==
--- NOTE | 2024-05-20 08:40 | Mammography Report ---
BILATERAL DIGITAL SCREENING MAMMOGRAM 3D/2D: 05/19/2024 CLINICAL: Routine screening. Family history of breast cancer. Comparison is made to exams dated: 03/14/2023 mammogram, 02/07/2022 mammogram, 06/30/2020 mammogram, 04/26 mammogram, and 01/27/2015 mammogram - [facility]. Both breasts are almost entirely fatty (category a/<25% glandular tissue). No significant masses, calcifications, or other findings are seen in either breast. There has been no significant interval change. IMPRESSION: NEGATIVE There is no mammographic evidence of malignancy. A 1 year screening mammogram is recommended. Based on the Tyrer Cuzick model (a risk assessment model) the patient's lifetime risk is 3.6% and her 10 year risk is 0.0%. According to the ACR, ACS, and NCCN guidelines, an annual breast MRI exam sofya g with mammogram is recommended if the patient's lifetime risk is 20% or greater. This exam was interpreted at Station ID: [id number]. NOTE: For mammograms, a report in lay terms will be sent to the patient. Approximately 15% of breast malignancies will not be visualized mammographically. In the management of a palpable breast mass, a negative mammogram must not discourage biopsy of a clinically suspicious lesion. Electronically Signed By: Vanessa wise/katlyn:05/19/2024 16:02:10 letter sent: No_Letter ACR BI-RADS Category 1: Negative 3341F PARENCHYMAL PATTERN: (F) - The breast(s) demonstrate(s) diffuse fatty replacement. BI-RADS CATEGORY: (1) - 1 RECOMMENDATION: (ANNUAL) - Recommend routine annual screening mammography. [id number] 1 year screening LATERALITY: (B)
== END 2024-05-19 14:08 | disposition home or self-care (01) ==
LOC: DI 14:07
PROVIDERS: ATTEND Internal Medicine
DX: Z12.31 Encounter for screening mammogram for malignant neoplasm of breast (principal)

== ENCOUNTER 2024-05-19 14:21 | Outpatient (CLI) | payer MEDICARE, OTHER ==
--- NOTE | 2024-05-19 20:34 | DEXA Report ---
PROCEDURE: Dexa Spine and/or Hip INDICATIONS: POST MENOPAUSAL TECHNIQUE: Dual energy x-ray absorptiometry (DXA) was performed on a [employer] System. Regions measur ed are the AP Spine, femoral neck, and if needed forearm. COMPARISON: DEXA 05/21/2019 FINDINGS: Lumbar Spine (L1-L3): Bone Mineral Density: 0.955 g/cm/cm,T score: -1.8. There has been no statistically significant crawford e in bone mineral density since the prior study. Left Femoral Neck: Bone Mineral Density: 0.732 g/cm/cm, T score: -2.2. Left Hip: Bone Mineral Density: 0.854 g/cm/cm,T score: -1.2. There has been no statistically significant change in bone mineral density since the prior study. (T score greater or equal to -1.0: NORMAL) (T score from -1.1 to -2.4: OSTEOPENIA) (T score less than or equal to -2.5 to: OSTEOPOROSIS) Impression: By WHO criteria, this patient has low bone density (osteopenia). No statistical interval change in bone mineral density of the lumbar spine. No statistical interval c hange in bone mineral density of the hip. Patients with diagnosis of osteoporosis or osteopenia should have regular bone mineral density assess ment. For those eligible for Medicare, routine testing is allowed once every 2 years. Testing frequ ency can be increased for patients who have rapidly progressing disease or for those who are receivin g medical therapy to restore bone mass. Reviewed by: Kimani Roberts MD on 05/19/2024 8:32 PM PDT Approved by: Kimani Roberts MD on 05/19/2024 8:32 PM PDT Station ID: [id number]
== END 2024-05-19 14:22 | disposition home or self-care (01) ==
LOC: DI 14:21
PROVIDERS: ATTEND Internal Medicine
DX: M85.89 Other specified disorders of bone density and structure, multiple sites (principal); Z78.0 Asymptomatic menopausal state

== ENCOUNTER 2024-08-03 09:48 | Outpatient (CLI) | payer MEDICARE, OTHER ==
[2024-08-03 16:11] LABS: THYROID STIMULATING HORMONE 1.19 uIU/mL (0.34-5.60)
[2024-08-03 16:12] LABS: BUN - BLOOD UREA NITROGEN 20 mg/dL (6-20); CARBON DIOXIDE - CO2 28 mmol/L (21-32); CHLORIDE 107 mmol/L (101-111); CHOL/HDL RATIO 4.2 (<4.4); CHOLESTEROL 227 mg/dL; CREATININE 0.9 mg/dL (0.6-1.3); GFR - MDRD 61 (>89); GLUCOSE 99 mg/dL (74-104); HDL CHOLESTEROL 54 mg/dL; LDL CHOLESTEROL,CALCULATED 126 mg/dL; LDL/HDL RATIO 2.3 (<4.4); POTASSIUM 4.5 mmol/L (3.5-4.5); SODIUM 138 mmol/L (135-145); TRIGLYCERIDES 233 mg/dL; VLDL CHOLESTEROL 47 mg/dL
[2024-08-03 16:57] LABS: CREATININE,URINE 76.5 mg/dL
[2024-08-03 16:59] LABS: MICROALBUMIN,URINE < 0.7 mg/dL
[2024-08-03 19:32] LABS: ESTIMATED AVERAGE GLUCOSE 123 mg/dL (70-100); HEMOGLOBIN A1c% 5.9 % (4.27-6.07)
== END 2024-08-03 09:49 | disposition home or self-care (01) ==
LOC: LAB.S 09:48
PROVIDERS: ATTEND Internal Medicine
DX: I10 Essential (primary) hypertension (principal); E78.5 Hyperlipidemia, unspecified; E03.9 Hypothyroidism, unspecified; Z13.1 Encounter for screening for diabetes mellitus
CPT/HCPCS: 36415; 80048; 80061; 82043; 82570; 83036; 83721; 84443